=== PATIENT | male | born 1985 | race African-American/Black ===

== ENCOUNTER 2025-01-28 09:09 | Emergency (ER) | payer MEDICAID ==
[~2025-01-28] VITALS: Ht 177.8 cm; Wt 77.0 kg
[2025-01-28 09:12] VITALS: O2SAT 99
[2025-01-28] MEDS ORDERED: OLANZAPINE 5MG TABLET ODT PO ONE (09:30)
[2025-01-28 09:46] LABS: BASOPHILS % 0.5 % (0.0-2.0); EOSINOPHILS % 0.7 % (0.0-5.0); HEMATOCRIT. 38.7 % (42.0-52.0); HEMOGLOBIN. 12.6 g/dL (14.0-18.0); LYMPHOCYTES % 24.4 % (20.0-50.0); MEAN PLATELET VOLUME 8.3 fl (7.4-10.4); MONOCYTES % 8.8 % (2.0-8.0); NEUTROPHILS % 65.6 % (40.0-76.0); PLATELET 199 x1000/uL (130-400); RED BLOOD CELL COUNT 4.60 mill/uL (4.7-6.1); RED CELL DISTRIBUTION WIDTH 17.2 % (11.6-14.6)
[2025-01-28 09:50] LABS: CLARITY URINE CLEAR (CLEAR); COLOR URINE YELLOW (YELLOW); GLUCOSE URINE NEGATIVE (NEGATIVE); KETONES URINE NEGATIVE (NEGATIVE); LEUKOCYTE ESTERASE URINE NEGATIVE (NEGATIVE); NITRITE URINE NEGATIVE (NEGATIVE); OCCULT BLOOD URINE NEGATIVE (NEGATIVE); PH URINE 6.5 (4.5-8.0); PROTEIN URINE NEGATIVE (NEGATIVE); SPECIFIC GRAVITY URINE 1.024 (1.005-1.030); UROBILINOGEN URINE 1.0 E.U./dL (0.2-1.0)
[2025-01-28 10:00] LABS: CREATININE 0.9 mg/dL (0.6-1.3); UREA NITROGEN BLOOD 10 mg/dL (9-23)
[2025-01-28 10:01] LABS: ETHANOL BLOOD < 10 mg/dL (<10)
[2025-01-28 10:02] LABS: ASPARTATE AMINOTRANSFERASE 52 IU/L (<34); BILIRUBIN DIRECT < 0.1 mg/dL (<=3.0); BILIRUBIN TOTAL 0.3 mg/dL (0.1-1.0)
[2025-01-28 10:03] LABS: PROTEIN TOTAL 6.3 g/dL (6.0-8.3)
[2025-01-28 10:05] LABS: *AMPHETAMINES SCREEN URINE NEGATIVE (NEGATIVE); *BARBITURATES SCREEN URINE NEGATIVE (NEGATIVE); *BENZODIAZEPINES SCREEN URINE NEGATIVE (NEGATIVE); *COCAINE SCREEN URINE NEGATIVE (NEGATIVE); CANNABINOID URINE SCREEN PRESUMPTIVE POSITIVE (NEGATIVE); ECSTASY MDMA SCREEN URINE NEGATIVE (NEGATIVE); METHADONE URINE SCREEN NEGATIVE (NEGATIVE); OPIATES URINE SCREEN NEGATIVE (NEGATIVE); PHENCYCLIDINE URINE SCREEN NEGATIVE (NEGATIVE)
[2025-01-28] MEDS: IBUPROFEN 400MG TABLET PO ONE (10:45)
[2025-01-28] MEDS: GABAPENTIN SOLN 300MG/6ML UDC PO ONE (10:45)
[2025-01-28] MEDS: OLANZAPINE 5MG TABLET ODT PO SCH (11:17)
[2025-01-29 12:00] VITALS: BP 118/83; PULSE 74; RESP 20; TEMP 36.8; O2SAT 100
== END 2025-01-29 12:32 | disposition home or self-care (01) ==
LOC: ER 09:20
DX: F23 Brief psychotic disorder (principal); F31.9 Bipolar disorder, unspecified; Z02.89 Encounter for other administrative examinations; Z20.822 Contact with and (suspected) exposure to COVID-19; Z88.5 Allergy status to narcotic agent; Z88.0 Allergy status to penicillin
CPT/HCPCS: 36415; 80048; 80076; 80305; 80307; 80320; 80329; 81003; 85025; 87426; 99285; G0480